=== PATIENT | female | born 1975 | race Caucasian/White ===

== ENCOUNTER 2016-05-25 13:24 | Emergency (ER) | payer OTHER ==
[~2016-05-25] VITALS: Ht 167.6 cm; Wt 62.3 kg
[2016-05-25 13:45] VITALS: BP 128/81; PULSE 105; RESP 16; TEMP 98.5; O2SAT 99
--- NOTE | 2016-05-25 15:02 | PD ---
HPI Chief Complaint: Lump, Cyst, Hernia Time Seen by Provider: 14:59 Travel History International Travel<30 days: No Contact w/Intl Traveler<30days: No Traveled to known affect area: No History of Present Illness HPI 40-year-old female with history of Crohn's disease, previous history of anal fissures and perirectal abscesses, presents to the ER today because she has had 3 days history of pain near her rectal area, states that it feels like her previous perirectal abscess, and is painful with movement and bowel movements. She denies any fevers, abdominal pains, vomiting, or any other symptoms. She denies any dark stools or bleeding. She states that she has had several episodes of perirectal abscesses which have been drained and the last one was a year ago. Modifying Factors: None Associated Signs & Symptoms: Perirectal abscess Risk Factors: Previous history of perirectal abscesses PFSH Past Medical History Autoimmune Disease: Yes Gastrointestinal Disorders: Yes (chron's disease) Tetanus Vaccination: < 5 Years Influenza Vaccination: No ?: Not LMP: no menses has IUD Past Surgical History Surgical History: No Previous Surgery Other Surgery: Yes (cyst removed from rectal area 04/2015) Social History Alcohol Use: No (occas. beer) Tobacco Use: Yes (1 ppd) Substance Use: No Allergies-Medications (Allergen,Severity, Reaction): Coded Allergies: No Known Allergies (Unverified , 05/25/16) Reported Meds & Prescriptions Reported Meds & Active Scripts Active No Active Prescriptions or Reported Medications Review of Systems Except as stated in HPI: all other systems reviewed are Neg Physical Exam Narrative GENERAL: Pleasant well-developed young white female patient currently none acute distress. SKIN: Focused skin assessment warm/dry. HEAD: Atraumatic. Normocephalic. EYES: Pupils equal and round. No scleral icterus. No injection or drainage. ENT: No nasal bleeding or discharge. Mucous membranes pink and moist. NECK: Trachea midline. No JVD. CARDIOVASCULAR: Regular rate and rhythm. No murmur appreciated. RESPIRATORY: No accessory muscle use. Clear to auscultation. Breath sounds equal bilaterally. GASTROINTESTINAL: Abdomen soft, non-tender, nondistended. Hepatic and splenic margins not palpable. RECTAL EXAM: There is a tender fluctuant area in the rectum at an area of the anal verge at the 4 o'clock position on the right which is tender to palpation measuring around 1 cm, stool is brown. MUSCULOSKELETAL: No obvious deformities. No clubbing. No cyanosis. No edema. NEUROLOGICAL: Awake and alert. No obvious cranial nerve deficits. Motor grossly within normal limits. Normal speech. PSYCHIATRIC: Appropriate mood and affect; insight and judgment normal. Data Data Last Documented VS Vital Signs Date Time Temp Pulse Resp B/P Pulse Ox O2 Delivery O2 Flow Rate FiO2 05/25/16 13:52 16 05/25/16 13:45 98.5 105 128/81 99 Orders Morphine Inj (Morphine Inj) (05/25/16 15:45) Ondansetron Inj (Zofran Inj) (05/25/16 15:45) [facility] Medical Decision Making Medical Screen Exam Complete: Yes Emergency Medical Condition: Yes Medical Record Reviewed: Yes Differential Diagnosis Perirectal abscess versus hernia versus anal fissure Narrative Course Exam reveals what appears to be a perirectal abscess. Case was discussed with Dr. Jimenez who states that she would like the patient to follow-up with her in the office tomorrow, nothing by mouth after midnight. Return for any worsening in pain, fevers, and as needed. The plan has been discussed with the patient and she states understanding. Diagnosis Primary Impression: Perirectal abscess Referrals: Remedios Jimenez MD Additional Instructions: Please call Dr. Jimenez office at [phone] for appointment tomorrow. Med/Other Pt SpecificInfo: Prescription(s) given Scripts Hydrocodone-Acetaminophen (Lortab)5-325 Mg Tab1-2 Tab PO Q6H PRN (PAIN) #20 TAB Ref 0 Prov:Jono Luo MD 05/25/16 Disposition: 01 DISCHARGE HOME Condition: Stable Jono Luo MD May 25, 2016 15:02
[2016-05-25] MEDS ORDERED: ONDANSETRON HCL 4 MG/2 ML VIAL IM ONE (15:45)
[2016-05-25] MEDS ORDERED: MORPHINE SULFATE 4 MG/ML INJ IM ONE (15:45)
[2016-05-25] MEDS ORDERED: HYDR-3533 PO (16:49)
== END 2016-05-25 17:08 | disposition home or self-care (01) ==
LOC: PHED 13:24
DX: K61.1 Rectal abscess (principal)
CPT/HCPCS: 96372; 99283; J2270; J2405